=== PATIENT | male | born 1995 | race Caucasian/White ===

== ENCOUNTER 2022-05-08 10:52 | Outpatient (REF) | payer BC, SELFPAY ==
[2022-05-08 14:33] LABS: Alanine Aminotransferase 86 U/L (0-40); Albumin Level 4.9 g/dL (3.5-5.0); Alkaline Phosphatase 56 U/L (39-117); Anion Gap 12 (12-20); Aspartate Amino Transferase 38 U/L (5-37); Bilirubin Total 0.6 mg/dL (0.0-1.0); Blood Urea Nitrogen 17 mg/dL (9-16); Calcium 9.7 mg/dL (8.4-10.2); Carbon Dioxide 28 mmol/L (22-29); Chloride 104 mmol/L (96-108); Cholesterol 201 mg/dL; Estimated Glomerular Filt Rate > 60; Glucose Fasting 93 mg/dL (60-99); HDL Cholesterol 59 mg/dL; LDL Cholesterol Calculated 125 mg/dl; Potassium 4.1 mmol/L (3.3-5.1); Sodium 140 mmol/L (135-145); Total Protein 7.2 g/dL (6.5-8.0); Triglycerides 88 mg/dL
[2022-05-08 14:49] LABS: Syphilis Screen Nonreactive (Nonreactive)
[2022-05-10 07:39] LABS: HBS Num1 3.12 mIU/mL (0-7.99); HBc Num1 0.08 S/CO (0.00-0.79); HBsAGNum1 0.34 S/CO (0.00-0.99); HIV AB/AG Nonreactive (Nonreactive); HIV Num 1 0.08 S/CO (0.00-0.99); Hepatitis B Core Antibody Nonreactive (Nonreactive); Hepatitis B Surface Antigen Negative (Negative); ~HepC Num1 0.06 S/CO (0.00-0.79); ~Hepatitis B Surface Antibody NONREACTIVE (Nonreactive); ~Hepatitis C Antibody Nonreactive (Nonreactive)
== END 2022-05-08 10:53 | disposition home or self-care (01) ==
LOC: HO.WFDLDS 10:52
PROVIDERS: Visit Provider Family Medicine
DX: Z00.00 Encounter for general adult medical examination without abnormal findings (principal); Z11.4 Encounter for screening for human immunodeficiency virus [HIV]; Z20.2 Contact with and (suspected) exposure to infections with a predominantly sexual mode of transmission
CPT/HCPCS: 36415; 80053; 80061; 86704; 86706; 86780; 86803; 87340; 87389

== ENCOUNTER 2022-10-02 13:09 | Outpatient (AMB) | payer BC, SELFPAY ==
--- NOTE | 2022-10-02 14:30 | MHC.OFFWIV ---
Intake Vital Signs 10/02/22 14:31 Weight 184 lb BP 122/80 Blood Pressure Location Lt brachial Position Sitting Pulse 72 Pulse Source Pulse Oximeter Temp 97.2 F Temp Source Temporal Artery Scan Pulse Oximetry (%) 98 Oxygen Delivery Method Room Air Intake Visit Reasons: EP Clearance for work/was out due to stomach bug Intake Note: Patient here because last week he had a stomach bug and was unable to eat much, he also mentioned he has had a cough for about 1 month. Patient Tobacco Use Status: Never used Tobacco Allergies No Known Allergies Allergy (Verified 10/02/22 15:05) Medication List - Last Reconciled 10/02/22 by Steve Lei MD No Known Home Meds Do you need a note to return to daycare/school/sports/work: Yes HPI EP Clearance for work/was out due to stomach bug HPI Details 27-year-old male presents to the office for a sick visit. 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 He did not go to work last week due to a stomach bug. Symptoms included nausea, diarrhea and stomach cramps. Patient stated at home and his symptoms have resolved. He needs a note to return to work. 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 Current occupational exposures/hazards: No Cognitive needs: No Hearing needs: No Vision needs: No Physical Exam Vital Signs: Last Vital Signs Temp 97.2 F 10/02/22 14:31 Pulse 72 10/02/22 14:31 BP 122/80 10/02/22 14:31 Pulse Ox 98 10/02/22 14:31 Oxygen Delivery Method Room Air 10/02/22 14:31 Const General: cooperative and healthy appearing Nutritional Appearance: well nourished Orientation/consciousness: patient oriented x3 Limitations: no limitations HEENT Head: Yes normal to inspection Eyes General: appearance normal, both eyes and all related structures Neck Neck: Yes normal visual inspection Chest Chest palpation & inspection: normal palpation of entire chest wall Resp Effort & Inspection: normal respiratory effort Neuro General: patient oriented x3 Assessment & Plan Assessment & Plan (1) Viral gastroenteritis: Code(s): A08.4 - Viral intestinal infection, unspecified Plan: Self-limiting illness. Note for work given. Coding Level of Care Code Est Pt Level 3 (56527) Diagnoses Viral gastroenteritis A08.4
[2022-10-02 14:31] VITALS: BP 122/80; PULSE 72; TEMP 36.2; O2SAT 98
== END 2022-10-02 15:24 | disposition home or self-care (01) ==
PROVIDERS: PCP Family Medicine; Visit Provider Internal Medicine
DX: A08.4 Viral intestinal infection, unspecified (principal)
CPT/HCPCS: 99213

== ENCOUNTER 2023-05-09 07:06 | Outpatient (REF) | payer OTHER, SELFPAY ==
[2023-05-09 12:02] LABS: Alanine Aminotransferase 62 U/L (0-40); Albumin Level 4.6 g/dL (3.5-5.0); Alkaline Phosphatase 52 U/L (39-117); Anion Gap 12 (12-20); Aspartate Amino Transferase 35 U/L (5-37); Bilirubin Total 0.6 mg/dL (0.0-1.0); Blood Urea Nitrogen 14 mg/dL (9-16); Calcium 9.6 mg/dL (8.4-10.2); Carbon Dioxide 28 mmol/L (22-29); Chloride 105 mmol/L (96-108); Cholesterol 186 mg/dL (<200); Estimated Glomerular Filt Rate > 60; Glucose Fasting 87 mg/dL (60-99); HDL Cholesterol 51 mg/dL (>40); LDL Cholesterol Calculated 120 mg/dL (<100); Potassium 3.7 mmol/L (3.3-5.1); Sodium 141 mmol/L (135-145); Total Protein 7.3 g/dL (6.5-8.0); Triglycerides 75 mg/dL (<150)
== END 2023-05-09 07:07 | disposition home or self-care (01) ==
LOC: HO.WFDLDS 07:06
PROVIDERS: Visit Provider Family Medicine
DX: Z00.00 Encounter for general adult medical examination without abnormal findings (principal); Z13.6 Encounter for screening for cardiovascular disorders
CPT/HCPCS: 36415; 80053; 80061; 84443

== ENCOUNTER 2023-05-11 08:47 | Outpatient (AMB) | payer OTHER, SELFPAY ==
[2023-05-11 08:54] VITALS: BP 110/64; PULSE 72; O2SAT 97; BMI 27.1
--- NOTE | 2023-05-11 08:54 | A.OFFPC_ITS ---
Vital Signs 05/11/23 08:54 Height 6 ft Weight 200 lb 2 oz BMI 27.1 BP 110/64 Blood Pressure Location Lt brachial Position Sitting Pulse 72 Pulse Source Pulse Oximeter Pulse Oximetry (%) 97 Oxygen Delivery Method Room Air Intake Visit Reasons: CPE with f/u labs and health maintenance Intake Note: Patient is here for his physical today. Allergies No Known Allergies Allergy (Verified 05/11/23 08:55) Tobacco use date assessed: 05/11/23 Dental Screening Dental Screen Date: 05/11/23 Did you have a dental visit in the last 12 months?: Yes Did you have a dental problem in the last 6 months where you did not have access to dental care?: No Was dental information given to patient?: Patient has dentist HPI CPE with f/u labs and health maintenance HPI Details 27 y/o male presents for a CPE with f/u labs and health maintenance. Labs were drawn 05/09/23. Reviewed labs with pt. AST 35. Ongoing elevated ALT of 62 though improved from 86. Triglycerides 75. TC 186. LDL 120. HDL 51. Pt has complaints of R inguinal/R testicular pain. He notes pain began when lifting something heavy. HPI Comments History of Present Illness Details Documentation assistance for Anthony Santos MD, was provided by Reg Johns, Parachute/Combatant Diver Officer on 05/11/2023 9:19 AM EST. I, Dr. Santos, have read, observed, and verified documentation. 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 1. Little interest or pleasure in doing things: not at all 2. Feeling down, depressed, or hopeless: not at all 3. Trouble falling or staying asleep, or sleeping too much: not at all 4. Feeling tired or having little energy: not at all 5. Poor appetite or overeating: not at all 6. Feeling bad about yourself - or that you are a failure or have let yourself or your family down: not at all 7. Trouble concentrating on things, such as reading the newspaper or watching television: not at all 8. Moving or speaking so slowly that other people could have noticed. Or the opposite - being so fidgety or restless that you have been moving around a lot more than usual: not at all 9. Thoughts that you would be better off or of hurting yourself in some way: not at all Total score: 0 Depression Screening Interpretation: Negative Depression Screening Done: Yes 86842 - PHQ-9 Billing: Yes Source: Developed by Drs. Ramo Haley, yV Garcia, Beltran Gregory and colleagues, with an educational komal from [employer]. Thrive Questionnaire Date Thrive assessed: 05/11/23 I am a: Patient What is your living situation today?: I have a steady place to live Within the past 12 months, did the food you bought not last and you didn't have the money to get more?: Never true Within the past 12 months, did you worry whether your food would run out before you got money to buy more?: Never true Do you have trouble paying for medicines?: No Do you have trouble getting transportation to medical appointments?: No Do you have trouble paying your heating and electricity bill?: No Do you have trouble taking care of your child, family member or friend?: No Do you have trouble with day-to-day activities such as bathing, preparing meals, shopping, managing finances, etc.?: No Are you currently unemployed and looking for a job?: No Are you interested in more education?: Yes THRIVE Score: 0 AUDIT C Alcohol Use Questionnaire (AUDIT-C) 1. How often do you have a drink containing alcohol?: 2-3 times a week 2. How many drinks containing alcohol do you have on a typical day when you are drinking?: 5 or 6 3. How often do you have six or more drinks on one occasion?: Never Total Score: 5 JL-7 AMB Questionnaire JL-7 Date JL - 7 assessed: 05/11/23 Feeling nervous, anxious, or on edge: 0 = Not at all Not being able to stop or control worryin = Not at all Worrying too much about different things: 0 = Not at all Trouble relaxin = Not at all Being so restless that it is hard to sit still: 0 = Not at all Becoming easily annoyed or irritable: 0 = Not at all Feeling afraid as if something awful might happen: 0 = Not at all Total JL-7 score (0-4 normal; 5-9 mild; 10-14 moderate; 15-21 severe): 0 Source: Developed by Drs. Ramo Haley, Vy Garcia, Beltran torres nd colleagues, with an educational komal from [employer]. JL-7 Assessment Billing JL-7 Assessment Tool: JL-7 Assessment 28952 Review of Systems Const Denies chills, Denies fatigue, Denies fever(s), Denies headache(s) and Denies weakness Eyes Denies change in vision ENT Denies dizziness, Denies headache(s), Denies hearing loss, Denies nasal congestion, Denies sinus pain, Denies sinus pressure and Denies sore throat Card Denies chest pain, Denies lightheadedness, Denies dyspnea and Denies other (palpitations) Resp Denies cough, Denies dyspnea and Denies wheezing GI Denies abdominal pain, Denies melena, Denies hematochezia, Denies change in bowel habits, Denies dyspepsia and Denies nausea Denies hematuria and Denies dysuria Musc Denies abnormal gait, Denies myalgias, Denies arthralgias, Denies numbness and Denies tingling Skin/Breast Denies rash, Denies unusual bruising and Denies wounds Neuro Denies abnormal gait, Denies dizziness, Denies headache(s), Denies memory loss, Denies numbness, Denies Sensory deficit (Neuro), Denies tingling and Denies weakness Psych Denies anxiety, Denies depression and Denies memory loss Endo Denies cold intolerance, Denies fatigue, Denies heat intolerance, Denies polydipsia and Denies polyuria Kevin/Lymph Denies easy bleeding and Denies easy bruising Aller/Immun Denies wheezing Physical exam (Primary Care) Vital Signs: Last Vital Signs Pulse 72 05/11/23 08:54 BP 110/64 05/11/23 08:54 Pulse Ox 97 05/11/23 08:54 Oxygen Delivery Method Room Air 05/11/23 08:54 BMI result Body Mass Index 27.1 Tobacco/Smoking Status: Tobacco use Status Tobacco use date assessed 05/11/23 05/11/23 08:55 Patient Tobacco Use Status Never used Tobacco 05/11/23 08:55 e-Cigarette/Vaping Use Never Used 05/11/23 08:55 PHQ-9: PHQ-9 Score PHQ-9: Total score 0 05/11/23 09:10 Depression Screening Interpretation: Negative Thrive Assessment: Date of Thrive Assessment Date Thrive assessed 05/11/23 05/11/23 09:00 Const General: no acute distress, well developed, alert and awake Nutritional Appearance: well nourished Orientation/consciousness: patient oriented x3 HENMT Head: Yes normocephalic and Yes atraumatic Ears: hearing grossly normal bilaterally and TM's normal bilaterally General nose exam: Normal external nose present and Normal nares present Mouth: Normal oral and palatal mucosa present and moist mucous membranes Teeth and gingiva: dentition normal Throat: Yes posterior oropharynx normal Eyes General: appearance normal, both eyes and all related structures Pupils: Equal, round and reactive pupils present and Pupil accommodation reflex normal EOM: EOMs intact bilaterally Neck Neck: Yes normal visual inspection, Yes no lymphadenopathy and Yes trachea midline Thyroid: Thyroid normal Carotids: no bruits Lymphatic: no lymphadenopathy noted Chest Chest palpation & inspection: normal inspection of the chest Resp Effort & Inspection: normal respiratory effort Auscultation: clear to auscultation bilaterally Cardio Rate: regular rate Rhythm: regular rhythm Heart sounds: S1 normal heart sound present, S2 normal heart sound present, no gallops, no murmurs and no rubs Bruits: no abdominal aortic bruits and no carotid bruits GI Other: R inguinal pain Palpation (GI): No Abdominal aortic bruit present, Soft to palpation, nontender, No hepatosplenomegaly present and No Rebound tenderness present Auscultation: normal bowel sounds Other: R testicular pain General: Yes no CVA tenderness Back/Spine/Pelvis Back: no CVA tenderness Cervical Spine: cervical ROM normal and No Cervical spine tenderness Thoracic/Lumbar Spine: thoraco-lumbar ROM normal, No pain with thoraco-lumbar ROM, No thoracic spinal tenderness and No lumbar spinal tenderness Skin Lesions: no lesions Rashes: no rashes Trauma: no lacerations or abrasions Wounds: no wounds Nails: normal Neuro General: patient oriented x3 Cranial nerves: Yes Equal, round and reactive pupils present Cognition (Neuro): normal cognition Gait exam (Neuro): Normal gait present Motor exam (neuro): 5/5 motor strength present throughout Sensory Exam: No Sensory deficit (Neuro) Deep tendon reflexes (DTR's): Right patellar reflex intensity grade: 2+ and Left patellar reflex intensity grade: 2+ Extrem General: Yes normal to inspection and No edema Psych Appearance: grossly normal Affect: normal affect Attitude: cooperative Thought process: Normal thought process present Assessment and Plan Assessment & Plan (1) Adult general medical exam: Code(s): Z00.00 - Encounter for general adult medical examination without abnormal findings Plan: 27-year-old?male?presents?for?complete?physical?exam Encouraged?healthy?diet?with?active?lifestyle?and?plenty?of?exercise (2) Elevated liver enzymes: Code(s): R74.8 - Abnormal levels of other serum enzymes Plan: Mildly?elevated?liver?enzymes?which?have?decreased?from?prior?lab?work Encouraged?hi m?to?work?on?some?weight?loss,?good?hydration?and?decreased?alcohol?on?the?weeke nds Will?repeat?liver?enzymes?in?about?6?weeks?and?follow-up If?liver?enzymes?are?the?same?or?higher?will?check?an?ultrasound (3) Right inguinal pain: Code(s): R10.31 - Right lower quadrant pain Plan: Right?inguinal?pain?with?a?slight?impulse?on?Valsalva He?notes?pain?began?after?lifting?something?heavy Checking?ultrasound (4) Right testicular pain: Code(s): N50.811 - Right testicular pain Plan: As?above Also?advise?supportive?undergarments?and?keep?cool Orders: Orders US scrotum Today N50.811 - Right testicular pain, R10.31 - Right lower quadrant pain US pelvic limited Today N50.811 - Right testicular pain, R10.31 - Right lower quadrant pain Comprehensive Met. Panel Today R74.8 - Abnormal levels of other serum enzymes Coding Level of Care Code Est Pt Level 3 (30829) Est Pt Prev Care 18-39y(88488) Diagnoses Adult general medical exam Z00.00 Elevated liver enzymes R74.8 Right inguinal pain R10.31 Right testicular pain N50.811 Additional Codes JL-7 Assessment Billing - JL-7 Assessment Tool: JL-7 Assessment 75037 ([id number])
== END 2023-05-11 09:27 | disposition home or self-care (01) ==
PROVIDERS: Visit Provider Family Medicine
DX: Z00.00 Encounter for general adult medical examination without abnormal findings (principal); R74.8 Abnormal levels of other serum enzymes; R10.31 Right lower quadrant pain; N50.811 Right testicular pain
CPT/HCPCS: 99213; 99395

== ENCOUNTER 2023-05-22 16:08 | Outpatient (REF) | payer OTHER, SELFPAY ==
--- NOTE | ~2023-05-22 | US_ITS ---
EXAMINATION: US SCROTUM CLINICAL INFORMATION: Right testicular pain. COMPARISON: None available. TECHNIQUE: A sonogram of the scrotum was performed assessing cortez-scale appearance and color Doppler flow. Spectral Doppler analysis of the arterial and venous flow were performed in the testes bilaterally. FINDINGS: RIGHT: Right testicle measures 4.9 x 2.6 x 3.5 cm, volume 23.1 mL. Tiny echogenic foci within the testicle are characteristic of microlithiasis. Spectral Doppler analysis of the arterial and venous flow is normal in the right testis. Right epididymal head is normal in size. No right hydrocele or varicocele is seen. Right epididymal Doppler flow is normal. LEFT: Left testicle measures 4.9 x 2.6 x 2.6 cm, volume 16.9 mL. Tiny echogenic foci within the testicle are characteristic of microlithiasis. Spectral Doppler analysis of the arterial and venous flow is normal in the left testis. Left epididymal head is normal in size. No left hydrocele or varicocele is seen. Left epididymal Doppler flow is normal. US/US scrotum IMPRESSION: Bilateral testicular microlithiasis.
== END 2023-05-22 16:09 | disposition home or self-care (01) ==
LOC: HO.US 16:08
PROVIDERS: PCP Family Medicine; Visit Provider Family Medicine
DX: N50.811 Right testicular pain (principal); R10.31 Right lower quadrant pain
CPT/HCPCS: 76870

== ENCOUNTER 2023-06-15 10:24 | Outpatient (AMB) | payer OTHER, SELFPAY ==
[2023-06-15 11:17] VITALS: BP 120/62; PULSE 76; O2SAT 97; BMI 26.1
--- NOTE | 2023-06-15 11:17 | A.OFFPC_ITS ---
Vital Signs 06/15/23 11:17 Height 6 ft Weight 192 lb 8 oz BMI 26.1 BP 120/62 Blood Pressure Location Lt brachial Position Sitting Pulse 76 Pulse Source Pulse Oximeter Pulse Oximetry (%) 97 Oxygen Delivery Method Room Air Intake Visit Reasons: f/u liver enzymes and ultrasound Intake Note: Patient is here to follow up on ultrasound and blood work. Allergies No Known Allergies Allergy (Verified 06/15/23 11:19) Tobacco use date assessed: 06/15/23 Dental Screening Dental Screen Date: 05/11/23 HPI f/u liver enzymes and ultrasound HPI Details Patient?is?following?testicular?pain?as?well?as?inguinal?pain Had?discussed?good?supportive?garments?and?keeping?cool?at?last?visit. He?notes?that?pain?has?not?resolved?though?it?is?mildly?improved. Ultrasound?did?not?show?inguinal?hernia?but?does?show?testicular?microlithiasis. He?had?elevated?liver?enzymes?which?were?coming?down.??He?has?lost?about?7?lb?si nce?last?visit. He?has?not?gotten?his?labs?redrawn?but?will?do?so?today. [facility] Surgical History (Updated 06/15/23 @ 11:20 by Libertad Hernandes [facility]) No pertinent past surgical history Social History (Updated 06/15/23 @ 11:25 by Libertad Hernandes [facility]) Household Members: Family Household Members Other:: parents Both parents involved: Yes Housing: House Are you a primary care management assistant to a significant other at home: No Do you presently have visiting nurse or other home services: No 75 years or older and lives alone: No Alcohol intake: current Alcohol intake frequency: other Comment: Weekends Patient Tobacco Use Status: Never used Tobacco e-Cigarette/Vaping Use: Never Used Use of substances other than those prescribed or required for medical reasons: No Have you been hit, kicked, punched, or otherwise hurt by someone within the past year? 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 Ramo Haley, Vy Garcia, Beltran Gregory and colleagues, with an educational komal from [employer]. Review of Systems Const Denies chills, Denies fatigue, Denies fever(s), Denies headache(s) and Denies weakness ENT Details: Mildly?scratchy?throat Denies dizziness and Denies headache(s) Card Denies chest pain, Denies lightheadedness, Denies dyspnea and Denies other (Palp itations) Resp Denies cough, Denies dyspnea, Denies wheezing and Denies other ( shortness of breath) Details: See?HPI Musc Denies numbness and Denies tingling Neuro Denies dizziness, Denies headache(s), Denies numbness, Denies tingling, Denies paresthesias and Denies weakness Psych Denies anxiety and Denies depression Endo Denies fatigue Aller/Immun Denies wheezing Physical exam (Primary Care) Vital Signs: Last Vital Signs Pulse 76 06/15/23 11:17 BP 120/62 06/15/23 11:17 Pulse Ox 97 06/15/23 11:17 Oxygen Delivery Method Room Air 06/15/23 11:17 BMI result Body Mass Index 26.1 Tobacco/Smoking Status: Tobacco use Status Tobacco use date assessed 06/15/23 06/15/23 11:25 Patient Tobacco Use Status Never used Tobacco 06/15/23 11:25 e-Cigarette/Vaping Use Never Used 06/15/23 11:25 Thrive Assessment: Date of Thrive Assessment Date Thrive assessed 05/11/23 06/15/23 11:25 Const General: no acute distress and well developed Nutritional Appearance: well nourished Orientation/consciousness: patient oriented x3 HENMT Other: Patient?has?some?small?vesicles?in?posterior?pharynx No?patchy?exudate TMs?look?okay Head: Yes normocephalic and Yes atraumatic Eyes General: appearance normal, both eyes and all related structures Pupils: Equal, round and reactive pupils present EOM: EOMs intact bilaterally Resp Effort & Inspection: normal respiratory effort Auscultation: clear to auscultation bilaterally Cardio Rate: regular rate Rhythm: regular rhythm Heart sounds: S1 normal heart sound present, S2 normal heart sound present, no gallops, no murmurs and no rubs Neuro General: patient oriented x3 and gait normal Cranial nerves: Yes Equal, round and reactive pupils present Psych Affect: normal affect Assessment and Plan Assessment & Plan (1) Elevated liver enzymes: Code(s): R74.8 - Abnormal levels of other serum enzymes Plan: Patient?has?not?gotten?his?labs?drawn?yet?but?will?do?so?today?and?we?can?follow -up?by?telemedicine?in?a?few?weeks (2) Right inguinal pain: Code(s): R10.31 - Right lower quadrant pain Plan: Ongoing?right?inguinal?pa in?which?improved?with?supportive?garments?and?keeping?cool (3) Right testicular pain: Code(s): N50.811 - Right testicular pain Plan: Ongoing?right?testicular?pain.??Ultrasound?showed?testicular?microlithiasis Also?inguinal?pain I?referred?him?to?Urology (4) Testicular microlithiasis: Code(s): N50.89 - Other specified disorders of the male genital organs Plan: As?above (5) Viral illness: Code(s): B34.9 - Viral infection, unspecified Orders: Referrals Urology Referral N50.811 - Right testicular pain, N50.89 - Other specified disorders of the male genital organs, R10.31 - Right lower quadrant pain Coding Level of Care Code Est Pt Level 4 (67460) Diagnoses Elevated liver enzymes R74.8 Right inguinal pain R10.31 Right testicular pain N50.811 Testicular microlithiasis N50.89 Viral illness B34.9
== END 2023-06-15 16:47 | disposition home or self-care (01) ==
PROVIDERS: PCP Family Medicine; Visit Provider Family Medicine
DX: R74.8 Abnormal levels of other serum enzymes (principal); R10.31 Right lower quadrant pain; N50.811 Right testicular pain; N50.89 Other specified disorders of the male genital organs; B34.9 Viral infection, unspecified
CPT/HCPCS: 99214

== ENCOUNTER 2023-06-15 12:10 | Outpatient (REF) | payer OTHER, SELFPAY ==
[2023-06-15 14:37] LABS: Appearance Urine Clear; Color Urine Yellow; Glucose Urine UA Negative (Negative); Leukocyte Esterase Urine Negative (Negative); Nitrite Urine Negative (Negative); PH 7.5 (5.0-9.0); UMIC TRIGGER UA YES; Urine Blood Negative (Negative); Urine Ketones Trace mg/dL (Negative); Urine Protein 30 (1+) mg/dL (Neg-Trace)
[2023-06-15 14:39] LABS: Bacteria Urine None Seen (None Seen); Hyaline Casts Urine 0-2 /LPF (0-2); RBC Urine 0-2 /HPF (0-2); Squamous Epithelial Cell Urine 0-2 /HPF (0-2); WBC Urine 0-5 /HPF (0-5)
[2023-06-15 15:15] LABS: Alanine Aminotransferase 67 U/L (0-40); Alkaline Phosphatase 57 U/L (39-117); Anion Gap 16 (12-20); Aspartate Amino Transferase 28 U/L (5-37); Bilirubin Total 0.9 mg/dL (0.0-1.0); Blood Urea Nitrogen 10 mg/dL (9-16); Calcium 10.2 mg/dL (8.4-10.2); Carbon Dioxide 27 mmol/L (22-29); Chloride 102 mmol/L (96-108); Estimated Glomerular Filt Rate > 60; Glucose Random 78 mg/dL (60-115); Sodium 141 mmol/L (135-145); Total Protein 8.2 g/dL (6.5-8.0)
== END 2023-06-15 12:11 | disposition home or self-care (01) ==
LOC: HO.WFDLDS 12:10
PROVIDERS: Visit Provider Family Medicine
DX: R74.8 Abnormal levels of other serum enzymes (principal)
CPT/HCPCS: 36415; 80053; 81001

== ENCOUNTER 2023-06-20 10:32 | Outpatient (AMB) | payer OTHER, SELFPAY ==
--- NOTE | 2023-06-20 10:39 | AM.OFFWIN_ITS ---
Intake Vital Signs 06/20/23 10:42 Height 6 ft Weight 190 lb BMI 25.8 BP 120/70 Blood Pressure Location Lt brachial Position Sitting Respiration 16 Pulse 89 Pulse Source Pulse Oximeter Temp 98.2 F Temp Source Oral Pulse Oximetry (%) 96 Oxygen Delivery Method Room Air Intake Visit Reasons: Ear pain Intake Note: Bilateral ear pain Patient Tobacco Use Status: Never used Tobacco Allergies No Known Allergies Allergy (Verified 06/20/23 10:40) Do you need a note to return to daycare/school/sports/work: Yes (work) HPI Ear pain HPI Details Patient is a 27-year-old male who presents today with complaints of bilateral ear pain x2-3 days. He states that a week ago he started with cold sx of rhinorrhea, sore throat, sinus pain and congestion. He states he initially had a fever and cough but both of those resolved. He states that he has been u sing [id number] sinus congestion medication without significant improvement. Over the last 24 hours the right ear has gotten much more uncomfortable. No loss of hearing. [facility] Surgical History (Updated 06/15/23 @ 11:20 by Libertad Hernandes CMA) No pertinent past surgical history Social History (Updated 06/15/23 @ 11:25 by Libertad Hernandes CMA) Household Members: Family Household Members Other:: parents Both parents involved: Yes Housing: House Are you a primary personal care service provider to a significant other at home: No Do you presently have visiting nurse or other home services: No 75 years or older and lives alone: No Alcohol intake: current Alcohol intake frequency: other Comment: Weekends Patient Tobacco Use Status: Never used Tobacco e-Cigarette/Vaping Use: Never Used Special margarita needs: No service: No Current occupational status: employed 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 ) with fluid behind the TM bilateral General nose exam: Nasal discharge present clear Face and sinus: Yes sinuses nontender Throat: Yes posterior oropharynx abnormal (Mildly erythematous) and Yes postnasal drainage Neck Thyroid: Thyroid normal Lymphatic: no lymphadenopathy noted Resp Auscultation: clear to auscultation bilaterally Cardio Rate: regular rate Rhythm: regular rhythm Heart sounds: S1 normal heart sound present and S2 normal heart sound present Skin General skin exam: no rashes or lesions noted Neuro General: patient oriented x3, gait normal and no focal motor deficits Assessment & Plan Assessment & Plan (1) Right otitis media with effusion: Code(s): H65.91 - Unspecified nonsuppurative otitis media, right ear Plan: We will start patient on Flonase and Augmentin. Discussed risks and benefits and adverse effects such as GI upset. Follow up if no improvement or if anything worsens or changes. Patient understands and agrees with the plan. Medications: New fluticasone propionate 50 mcg/actuation (Flonase Allergy Relief) administer into each nostril 2 sprays intranasal DAILY 16 grams 0RF amoxicillin-pot clavulanate 875-125 mg 1 tab PO Q12H 20 tabs 0RF Coding Level of Care Code Est Pt Level 3 (75684) Diagnoses Right otitis media with effusion H65.91
[2023-06-20 10:42] VITALS: BP 120/70; PULSE 89; RESP 16; TEMP 36.8; O2SAT 96; BMI 25.8
== END 2023-06-20 10:54 | disposition home or self-care (01) ==
PROVIDERS: PCP Family Medicine; Visit Provider Physician Assistant
DX: H65.91 Unspecified nonsuppurative otitis media, right ear (principal)
CPT/HCPCS: 99213

== ENCOUNTER 2023-08-08 14:26 | Outpatient (AMB) | payer OTHER, SELFPAY ==
--- NOTE | 2023-08-08 14:53 | A.OFFVIS_ITS ---
Intake Visit Reasons: microlithiasis/right inguinal and testicular pain Intake Note: New patient is present for Microlithiasis/Right inguinal and testicular pain Antibiotic Allergies: None Blood Thinners: None Patient states he has been having testicular pain for about 2 months now. Denies any penile discharge or infections. 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 He states currently asymptomatic. denies STD's denies dysuria Exam WNL, circ'd, testes nontender, no discrete masses palp'd fu prn PFSH Surgical History No pertinent past surgical history Social History Household Members: Family Household Members Other:: parents Both parents involved: Yes Housing: House Are you a primary care connector to a significant other at home: No Do you presently have visiting nurse or other home services: No 75 years or older and lives alone: No Alcohol intake: current Alcohol intake frequency: other Comment: Weekends Patient Tobacco Use Status: Never used Tobacco e-Cigarette/Vaping Use: Never Used Special margarita needs: No service: No Current occupational status: employed 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 Current occupational exposures/hazards: No Cognitive needs: No Hearing needs: No Vision needs: No Review of Systems Const All systems reviewed & are unremarkable except as noted in HPI and below Reports no additional complaints Eyes Reports no additional complaints ENT Reports no additional complaints Card Reports no additional complaints Resp Reports no additional complaints GI Reports no additional complaints Reports as per HPI Musc Reports no additional complaints Skin/Breast Reports system reviewed and no additional complaints, except as documented Neuro Reports no additional complaints Psych Reports no additional complaints Endo Reports no additional complaints Kevin/Lymph Reports no additional complaints Aller/Immun Reports no additional complaints Physical Exam Const General: healthy appearing, no acute distress and well developed Orientation/consciousness: patient oriented x3 HEENT Head: Yes normocephalic and Yes atraumatic Eyes Conjunctivae: conjunctivae normal Neck Neck: Yes normal visual inspection Chest Chest palpation & inspection: normal inspection of the chest Resp Effort & Inspection: normal respiratory effort Cardio Rate: regular rate GI Inspection: Yes normal to inspection Scrotum: scrotum normal Skin General skin exam: no rashes or lesions noted Neuro General: patient oriented x3 Extrem General: No pedal edema Psych Appearance: grossly normal Affect: normal affect Results AMB Urinalysis, Automated UA Leukoctes 0 Ike/uL Last Edit by Eli Romero Debora on 08/08/23 15:11 UA Nitrite Negative Last Edit by Eli Romero [facility] on 08/08/23 15:11 UA Urobilinogen 0.2 mg/dL Last Edit by Eli Romero A on 08/08/23 15:1 1 UA Protein 0 mg/dL Last Edit by Eli Romero [facility] on 08/08/23 15:11 UA pH 7.5 Last Edit by Eli Romero [facility] on 08/08/23 15:11 UA Blood 0 Danie/uL Last Edit by Eli Romero [facility] on 08/08/23 15:11 UA Specific [place] 1.015 Last Edit by Eli Romero [facility] on 08/08/23 15: 11 UA Ketone Negative Last Edit by Eli Romero [facility] on 08/08/23 15:11 UA Bilirubin 0 mg/dL Last Edit by Eli Romero [facility] on 08/08/23 15:11 UA Glucose 0 mg/dL Last Edit by Eli Romero [facility] on 08/08/23 15:11 Results Reviewed Results Reviewed: Laboratory Last Values Urine pH (Auto) 7.5 08/08/23 15:00 Specific [place] (Auto) 1.015 08/08/23 15:00 Urine Protein (Auto) 0 mg/dL 08/08/23 15:00 Glucose (UA)(Auto) 0 mg/dL 08/08/23 15:00 Urine Ketones (Auto) Negative 08/08/23 15:00 Urine Blood (Auto) 0 Danie/uL 08/08/23 15:00 Urine Nitrite (Auto) Negative 08/08/23 15:00 Urine Bilirubin (Auto) 0 mg/dL 08/08/23 15:00 Urine Urobilinogen (Auto) 0.2 mg/dL 08/08/23 15:00 Leukocyte Esterase (Auto) 0 Ike/uL 08/08/23 15:00 Date of Service: 05/22/23 EXAMINATION: US SCROTUM CLINICAL INFORMATION: Right testicular pain. COMPARISON: None available. TECHNIQUE: A sonogram of the scrotum was performed assessing cortez-scale appearance and color Doppler flow. Spectral Doppler analysis of the arterial and venous flow were performed in the testes bilaterally. FINDINGS: RIGHT: Right testicle measures 4.9 x 2.6 x 3.5 cm, volume 23.1 mL. Tiny echogenic foci within the testicle are characteristic of microlithiasis. Spectral Doppler analysis of the arterial and venous flow is normal in the right testis. Right epididymal head is normal in size. No right hydrocele or varicocele is seen. Right epididymal Doppler flow is normal. LEFT: Left testicle measures 4.9 x 2.6 x 2.6 cm, volume 16.9 mL. Tiny echogenic foci within the testicle are characteristic of microlithiasis. Spectral Doppler analysis of the arterial and venous flow is normal in the left testis. Left epididymal head is normal in size. No left hydrocele or varicocele is seen. Left epididymal Doppler flow is normal. Bilateral testicular microlithiasis. Assessment & Plan Assessment & Plan (1) Testicular microlithiasis: Code(s): N50.89 - Other specified disorders of the male genital organs Category: Medical (2) Right testicular pain: Code(s): N50.811 - Right testicular pain Category: Medical Plan Currently asymptomatic. FU prn Orders: Orders AMB Urinalysis Automated 08/08/23 Z13.9 - Encounter for screening, unspecified Patient Instructions: The patient had an opportunity to ask questions regarding treatment plan. The patient expressed understanding and agreement with the above treatment plan. The patient is aware they should contact our office by phone for worsening of their current condition or the appearance of new symptoms. Compliance is encouraged with any medications and followup testing that is ordered. It is a privilege to be allowed the opportunity to participate in the urologic care of your patient. If you have any questions or concerns regarding treatment for the above conditions please do not hesitate to contact me. The office telephone contact is [phone]. This note is constructed in part using voice recognition software. While every effort has been made to ensure accuracy machinist class b errors may have been included. Yours sincerely, Dotty Graves MD Coding Level of Care Code New Pt Level 3 (06603) Diagnoses Testicular microlithiasis N50.89 Right testicular pain N50.811
== END 2023-08-08 15:45 | disposition home or self-care (01) ==
PROVIDERS: PCP Family Medicine; Visit Provider Urology
DX: N50.89 Other specified disorders of the male genital organs (principal); N50.811 Right testicular pain
CPT/HCPCS: 99203

== ENCOUNTER → 2023-08-08 14:26 | Outpatient (BNVA) | payer OTHER, SELFPAY | PROVIDERS: PCP Family Medicine; Visit Provider Urology | DX: N50.811 Right testicular pain (principal); N50.89 Other specified disorders of the male genital organs | CPT/HCPCS: 81003 ==